=== PATIENT | female | born 1995 | race Caucasian/White ===

== ENCOUNTER 2020-07-13 21:58 | Emergency (ER) | payer SELFPAY ==
[~2020-07-13] VITALS: Ht 167.6 cm; Wt 81.0 kg
[2020-07-13 22:02] VITALS: BP 129/85
== END 2020-07-13 22:58 | disposition home or self-care (01) ==
LOC: ED 22:30
DX: R21 Rash and other nonspecific skin eruption (principal); F17.210 Nicotine dependence, cigarettes, uncomplicated
CPT/HCPCS: 99281

== ENCOUNTER 2020-07-18 11:13 | Inpatient (IN) | payer OTHER ==
[~2020-07-18] VITALS: Ht 167.6 cm; Wt 81.9 kg
--- NOTE | 2020-07-18 11:39 | NUR ---
25 yo came in w/ co/ of red bumps throughout limbs starting two weeks ago, now also complains of feet swelling, denies fevers, states some joint pain, Nyla LOUIS PA at bedside. States she had a cat bite recently and was treated for ring worm.
[2020-07-18] MEDS ORDERED: ACETAMINOPHEN 500 MG TABLET ONE (11:54)
[2020-07-18] MEDS ORDERED: KETOROLAC 30 MG/1 ML ONE (11:54)
[2020-07-18] MEDS ORDERED: PLEASE ENTER WEIGHT MC SCH (12:00)
[2020-07-18] MEDS ORDERED: ACETAMINOPHEN 500 MG TABLET PO ONE (12:00)
[2020-07-18] MEDS ORDERED: KETOROLAC 30 MG/1 ML IM ONE (12:00)
[2020-07-18 12:02] LABS: BASOPHILS % (AUTO) 1 % (0-1); EOSINOPHILS % (AUTO) 2 % (1-7); LYMPHOCYTES % (AUTO) 19 % (22-44); MEAN CORPUSCULAR HEMOGLOBIN 28.4 pg (27.0-34.8); MEAN PLATELET VOLUME 7.1 fL (7.4-10.4); MONOCYTES % (AUTO) 11 % (2-9); NEUTROPHILS % (AUTO) 68 % (42-75); PLATELET COUNT 359 x10^3/uL (130-400); RED BLOOD COUNT 4.48 x10^6/uL (3.82-5.3); RED CELL DISTRIBUTION WIDTH 12.9 % (9.6-15.2)
[2020-07-18 12:04] LABS: MD NO
[2020-07-18 12:13] LABS: ALBUMIN 3.4 g/dL (3.4-5.0); ANION GAP 8 mmol/L (5-15); CHLORIDE 108 mmol/L (98-107)
--- NOTE | 2020-07-18 12:14 | NUR ---
Triage note edited to add weight
[2020-07-18 12:16] LABS: ALANINE AMINOTRANSFERASE 56 U/L (12-78); ALKALINE PHOSPHATASE 109 U/L (45-117); BILIRUBIN,TOTAL 0.6 mg/dL (0.2-1.0); CREATININE 1.02 mg/dL (0.55-1.02); TOTAL PROTEIN 8.2 g/dL (6.4-8.2)
--- NOTE | 2020-07-18 12:57 | NUR ---
PIV placed, patient to CT, NADN.
[2020-07-18] MEDS ORDERED: OMNIPAQUE 350 MG/ML, 75ML BOTTLE ONE (13:19)
--- NOTE | 2020-07-18 14:20 | NUR ---
Nyla MAE at bedside along with Patients Mother, Loretta, to discuss results and plan for admission.
[2020-07-18] MEDS ORDERED: LORazepam 2 MG/ML, 1ML IVPush ONE (14:30)
[2020-07-18 15:02] LABS: INTERNATIONAL NORMALIZED RATIO 0.94 (0.93-1.1); PROTHROMBIN TIME 10.1 Seconds (9.6-11.5)
--- NOTE | 2020-07-18 15:18 | NUR ---
Pt to be admitted to Oncology , room 341. Report called to Enedelia NICHOLAS.
[2020-07-18] MEDS ORDERED: POLYETHYLENE GLYCOL 17 GM PACKET PO PRN (15:30)
[2020-07-18] MEDS ORDERED: DOCUSATE 100 MG CAPSULE PO PRN (15:30)
[2020-07-18] MEDS ORDERED: LABETALOL 5MG/ML, 20ML IVPush PRN (15:30)
[2020-07-18] MEDS ORDERED: BISACODYL 10 MG SUPP PR PRN (15:30)
[2020-07-18] MEDS ORDERED: ONDANSETRON 2MG/ML, 2ML IVPush PRN (15:30)
[2020-07-18] MEDS ORDERED: ONDANSETRON ODT 4 MG PO PRN (15:30)
[2020-07-18] MEDS ORDERED: KETOROLAC 30 MG/1 ML IV PRN (15:30)
[2020-07-18 15:52] VITALS: BP 114/73
[2020-07-18] MEDS ORDERED: NORG1TAB6 PO (15:59)
[2020-07-18 18:28] VITALS: BP 110/72
[2020-07-18] MEDS: MELATONIN 5 MG TABLET PO PRN (21:00)
[2020-07-18] MEDS: FAMOTIDINE 20 MG TABLET PO SCH (21:00)
[2020-07-19 01:15] VITALS: BP 108/64
[2020-07-19 03:57] LABS: BASOPHILS % (AUTO) 1 % (0-1); EOSINOPHILS % (AUTO) 5 % (1-7); LYMPHOCYTES % (AUTO) 37 % (22-44); MEAN CORPUSCULAR HEMOGLOBIN 28.2 pg (27.0-34.8); MEAN CORPUSCULAR HGB CONC 33.8 g/dL (32.4-35.8); MEAN PLATELET VOLUME 7.4 fL (7.4-10.4); MONOCYTES % (AUTO) 14 % (2-9); NEUTROPHILS % (AUTO) 43 % (42-75); PLATELET COUNT 351 x10^3/uL (130-400); RED BLOOD COUNT 4.34 x10^6/uL (3.82-5.3); RED CELL DISTRIBUTION WIDTH 13.1 % (9.6-15.2)
[2020-07-19 03:59] LABS: MD NO
[2020-07-19 04:09] LABS: ANION GAP 6 mmol/L (5-15); CHLORIDE 107 mmol/L (98-107); CREATININE 0.95 mg/dL (0.55-1.02)
[2020-07-19 04:33] LABS: HCT (SEDRATE) 36.2 % (34.6-47.8)
[2020-07-19 07:29] VITALS: BP 119/72
[2020-07-19] MEDS: FAMOTIDINE 20 MG TABLET PO SCH ×2 (07:39→20:43)
[2020-07-19] MEDS ORDERED: BUPIVACAINE/PF-EPI 0.5% 1:200K ONE (10:10)
[2020-07-19] MEDS ORDERED: FENTANYL PF 250 MCG/5ML ONE (11:57)
[2020-07-19] MEDS ORDERED: MIDAZOLAM 1 MG/ML, 2ML ONE (11:57)
[2020-07-19] MEDS ORDERED: OXYcodone 5 MG/5 ML ORAL.SOL UDC PO PRN (12:00)
[2020-07-19] MEDS ORDERED: ONDANSETRON 2MG/ML, 2ML IVPush PRN (12:00)
[2020-07-19] MEDS ORDERED: hydrALAzine 20 MG/ML, 1ML IV PRN (12:00)
[2020-07-19] MEDS ORDERED: MEPERIDINE/PF 25MG/0.5ML IVPush PRN (12:00)
[2020-07-19] MEDS ORDERED: PROMETHAZINE 25 MG/ML, 1ML IVPush PRN (12:00)
[2020-07-19] MEDS ORDERED: FENTANYL PF 100 MCG/2ML IV PRN (12:00)
[2020-07-19] MEDS ORDERED: ACETAMINOPHEN 325 MG TABLET PO PRN (12:00)
[2020-07-19] MEDS ORDERED: HYDROmorphone 1 MG/ML, 1ML INJ IVPush PRN (12:00)
[2020-07-19] MEDS ORDERED: METHOCARBAMOL 1,000 MG in DEXTROSE 5% 100 ML IV PRN (12:00)
[2020-07-19] MEDS ORDERED: EPHEDRINE 50 MG/ML, 1ML IVPush PRN (12:00)
[2020-07-19] MEDS ORDERED: LABETALOL 5MG/ML, 20ML IV PRN (12:00)
[2020-07-19] MEDS ORDERED: CHLORHEXIDINE 15 ML UDC MM ONE (12:00)
[2020-07-19] MEDS ORDERED: HALOPERIDOL 5 MG/ML IV PRN (12:00)
[2020-07-19] MEDS ORDERED: PROPOFOL 10 MG/ML, 20ML ONE (12:01)
[2020-07-19] MEDS ORDERED: DEXAMETHASONE 4 MG/ML, 1ML ONE (12:01)
[2020-07-19] MEDS ORDERED: ROCURONIUM 10 MG/ML,10ML ONE (12:01)
[2020-07-19] MEDS ORDERED: ONDANSETRON 2MG/ML, 2ML ONE (12:01)
[2020-07-19] MEDS ORDERED: CEFAZOLIN 1,000 MG ONE (12:01)
[2020-07-19] MEDS ORDERED: SUGAMMADEX 200 MG/2 ML IVPush ONE (12:01)
[2020-07-19] MEDS ORDERED: SUCCINYLCHOLINE 20 MG/ML, 10ML ONE (12:01)
[2020-07-19] MEDS ORDERED: PROPOFOL 50 ML ONE (12:19)
[2020-07-19] MEDS ORDERED: MORPHINE SULFATE 4 MG/ML, 1ML IVPush PRN (13:00)
[2020-07-19] MEDS ORDERED: ACETAMINOPHEN 650 MG/20.3 ML UDC ONE (13:11)
[2020-07-19 13:45] VITALS: BP 103/61
[2020-07-19] MEDS ORDERED: LACTATED RINGERS 1,000 ML IV ONE (14:00)
[2020-07-19] MEDS: ACETAMINOPHEN 325 MG TABLET PO PRN (17:28)
[2020-07-19] MEDS: GUAIFENESIN/COD200MG-20MG/10ML LIQUID PO PRN (18:28)
[2020-07-19 18:52] VITALS: BP 118/73
[2020-07-19] MEDS: HYDROcodone/APAP 5/325 TABLET PO PRN ×2 (20:52→22:09)
[2020-07-20 00:10] VITALS: BP 103/67
[2020-07-20] MEDS: MELATONIN 5 MG TABLET PO PRN (00:53)
[2020-07-20 07:16] VITALS: BP 113/67
[2020-07-20] MEDS: GUAIFENESIN/COD200MG-20MG/10ML LIQUID PO PRN (08:37)
[2020-07-20] MEDS: ACETAMINOPHEN 325 MG TABLET PO PRN (08:37)
[2020-07-20] MEDS: FAMOTIDINE 20 MG TABLET PO SCH (08:40)
[2020-07-20] MEDS ORDERED: ALLOPURINOL 100 MG TABLET PO SCH (09:00)
[2020-07-20] MEDS ORDERED: ALLO100T30 PO (10:03)
[2020-07-20 13:00] VITALS: BP 121/82
[2020-07-20 14:31] LABS: ANA SCREEN NEGATIVE (Negative)
== END 2020-07-20 14:13 | disposition home or self-care (01) | DRG 825 ==
LOC: ED 14:17 → SUATTDRO 14:38 → EDIP 14:51 → 4NW 15:52 → DCLOUNGE 07-20 14:05
PROVIDERS: ADMIT Internal Medicine; ATTEND Family Medicine
PROC: 07BD4ZX Excision of Aortic Lymphatic, Percutaneous Endoscopic Approach, Diagnostic (ICD-10-PCS; principal; 2020-07-19 13:30)
DX: C85.20 Mediastinal (thymic) large B-cell lymphoma, unspecified site (principal); E66.9 Obesity, unspecified; I10 Essential (primary) hypertension; K21.9 Gastro-esophageal reflux disease without esophagitis; L52 Erythema nodosum; Z68.29 Body mass index [BMI] 29.0-29.9, adult; Z88.0 Allergy status to penicillin; Z80.0 Family history of malignant neoplasm of digestive organs; Z85.6 Personal history of leukemia; D86.2 Sarcoidosis of lung with sarcoidosis of lymph nodes; E79.0 Hyperuricemia without signs of inflammatory arthritis and tophaceous disease; F17.210 Nicotine dependence, cigarettes, uncomplicated; Z20.822 Contact with and (suspected) exposure to COVID-19
CPT/HCPCS: 36415; 71045; 71260; 80048; 80053; 80074; 82105; 82164; 83615; 84550; 84703; 85025; 85384; 85610; 85651; 86038; 87015; 87070; 87075; 87081; 87102; 87116; 87176; 87205; 87206; 87635; 87806; 87880; 88305; 88331; 96372; 96374; 99285; G0378; J0690; J1100; J1885; J2250; J2405; J2704; J3010; Q9967; G0475; J0330; J7120

== ENCOUNTER 2020-12-09 00:27 | Emergency (ER) | payer OTHER ==
[~2020-12-09 00:27] MED LIST: ALLO100T30 PO; NORG1TAB6 PO
[2020-12-09] MEDS ORDERED: ONDANSETRON 2MG/ML, 2ML IVPush ONE (01:00)
[2020-12-09] MEDS ORDERED: SODIUM CHLORIDE 0.9% 1,000ML IVBOLUS ONE (01:00)
[2020-12-09] MEDS ORDERED: MORPHINE SULFATE 4 MG/ML, 1ML IVPush PRN (01:00)
[2020-12-09] MEDS ORDERED: ONDANSETRON 2MG/ML, 2ML ONE (01:16)
[2020-12-09] MEDS ORDERED: MORPHINE SULFATE 4 MG/ML, 1ML ONE (01:16)
[2020-12-09 01:23] LABS: BASOPHILS % (AUTO) 0 % (0-1); EOSINOPHILS % (AUTO) 3 % (1-7); LYMPHOCYTES % (AUTO) 25 % (22-44); MEAN CORPUSCULAR HEMOGLOBIN 27.8 pg (27.0-34.8); MEAN PLATELET VOLUME 7.7 fL (7.4-10.4); MONOCYTES % (AUTO) 11 % (2-9); NEUTROPHILS % (AUTO) 61 % (42-75); PLATELET COUNT 298 x10^3/uL (130-400); RED BLOOD COUNT 4.68 x10^6/uL (3.82-5.3)
[2020-12-09 01:25] LABS: ALBUMIN 3.3 g/dL (3.4-5.0); ANION GAP 6 mmol/L (5-15); CALCIUM 8.8 mg/dL (8.5-10.1); CHLORIDE 108 mmol/L (98-107)
--- NOTE | 2020-12-09 01:29 | NUR ---
PT C/O PRESSURE PAINS ACROSS ABDMIMEN, NAUSEA, AND VOMITTING AND BEGAN ABOUT 1 HR AGO. EKG AT BDSIDE, BF AT BEDSIDE. ATTACHED TO CARD/SP02/BP MONITORS/ VSS. NADN. PT FEELING BETTER AFTER MEDS. BED IN LOW POSITION, RAILS ENGAGED, CALL LIGHT ON LAP.
[2020-12-09 01:31] LABS: ALANINE AMINOTRANSFERASE 30 U/L (12-78); ALKALINE PHOSPHATASE 80 U/L (45-117); BILIRUBIN,TOTAL 0.3 mg/dL (0.2-1.0); CREATININE 0.98 mg/dL (0.55-1.02); TROPONIN I < 0.015 ng/mL (0.000-0.045)
--- NOTE | 2020-12-09 01:41 | NUR ---
PT OFF UNIT IN US
[2020-12-09 02:43] LABS: MICROSCOPIC INDICATED
--- NOTE | 2020-12-09 02:43 | NUR ---
PT OFF UNIT IN IMAGING.
[2020-12-09 02:58] VITALS: BP 112/74
--- NOTE | 2020-12-09 02:59 | NUR ---
GAVE REPORT TO NATHALY NICHOLAS. TRANSFER OF CARE.
--- NOTE | 2020-12-09 02:59 | NUR ---
REPORT FROM CRISTOPHER OROURKE
[2020-12-09] MEDS ORDERED: OMNIPAQUE 350 MG/ML, 100ML BOTTLE ONE (03:03)
--- NOTE | 2020-12-09 04:52 | NUR ---
Patient/Caregiver given discharge instructions and they have confirmed that they understand the instructions. Patient ambulatory with steady gait. NAD, all questions answered appropriately, denies additional needs at this time. No personal belongings left in room after discharge.
== END 2020-12-09 04:53 | disposition home or self-care (01) ==
LOC: ED 02:16
DX: K80.70 Calculus of gallbladder and bile duct without cholecystitis without obstruction (principal); R07.89 Other chest pain; R10.13 Epigastric pain; R11.10 Vomiting, unspecified; Z87.891 Personal history of nicotine dependence
CPT/HCPCS: 36415; 71045; 71275; 76700; 80053; 81001; 83690; 84484; 84703; 85025; 85379; 87086; 93005; 96361; 96374; 96375; 99285; J2270; J2405; J7030; Q9967